=== PATIENT | female | born 1950 | race Caucasian/White ===

== ENCOUNTER 2025-07-10 10:07 | Day surgery (SDC) | payer OTHER ==
[2025-07-06 17:25] VITALS: BMI 29.6
[2025-07-10] MEDS ORDERED: LIDOCAINE 1%/EPI 1:100000 (20 ML MULTI DOSE VIAL) ONE (12:00)
[2025-07-10] MEDS ORDERED: TRANEXAMIC ACID 1000 MG/10 ML VIAL ONE (12:00)
[2025-07-10] MEDS ORDERED: MIDAZOLAM HCL 2 MG/2 ML SINGLE DOSE VIAL ONE (12:30)
[2025-07-10] MEDS ORDERED: SEVOFLURANE 250 ML BTL ONE (12:30)
[2025-07-10] MEDS ORDERED: LIDOCAINE HCL 2% 100 MG/5 ML DISP.SYRIN ONE (12:33)
[2025-07-10] MEDS ORDERED: ONDANSETRON 4 MG/2 ML VIAL ONE (12:34)
[2025-07-10] MEDS ORDERED: DEXAMETHASONE SOD PHOSPHATE 4 MG/1 ML VIAL ONE (12:34)
[2025-07-10] MEDS ORDERED: PROPOFOL 20 ML ONE (12:45)
[2025-07-10] MEDS ORDERED: PROMETHAZINE HCL 25 MG/1 ML VIAL IVPB PRN (14:40)
[2025-07-10] MEDS ORDERED: ONDANSETRON 4 MG/2 ML VIAL IVPUSH PRN (14:40)
[2025-07-10] MEDS ORDERED: LACTATED RINGERS SOLUTION 1,000 ML IV SCH (14:45)
[2025-07-10] MEDS ORDERED: ERYTHROMYCIN 0.5% OPHTHALMIC OINTMENT 3.5 GM TUBE ONE (14:54)
[2025-07-10] MEDS ORDERED: MUPIROCIN 2% TOPICAL OINTMENT FOR DECOLONIZATION NS ONE (14:54)
[2025-07-10] MEDS ORDERED: NITROGLYCERIN 2% OINTMENT - 1GM PACKET TD ONE (14:58)
[2025-07-10] MEDS ORDERED: ACETAMINOPHEN INJECTION 100 ML ONE (15:52)
[2025-07-10] MEDS: ACETAMINOPHEN 1000 MG/100 ML BAG IVPB ONE (15:55)
[2025-07-10 17:28] VITALS: PULSE 79; RESP 16; TEMP 97.5
[2025-07-10 18:06] VITALS: BP 116/50
[2025-07-11] MEDS ORDERED: LOSARTAN POTASSIUM 50 MG TABLET PO SCH (10:00)
[2025-07-11] MEDS ORDERED: PATIENT'S OWN MEDICATION (NON-FORMULARY) (Candesartan/Hydrochlorothiazid [Candesartan-Hctz PO SCH (10:00)
[2025-07-11] MEDS ORDERED: HYDROCHLOROTHIAZIDE 12.5 MG CAPSULE (FP) PO SCH (10:00)
== END 2025-07-10 18:16 | disposition home or self-care (01) ==
LOC: FASU 10:07
PROVIDERS: ATTEND Plastic Surgery
PROC: 09UK07Z Supplement Nasal Mucosa and Soft Tissue with Autologous Tissue Substitute, Open Approach (ICD-10-PCS; principal; 2025-07-10 12:56)
DX: C44.311 Basal cell carcinoma of skin of nose (principal)
CPT/HCPCS: 82962; 94760